=== PATIENT | female | born 1945 | race Caucasian/White ===

== ENCOUNTER 2016-12-24 06:53 | Day surgery (SDC) | payer MEDICARE, OTHER ==
[2016-12-24] VITALS (14 sets, daily range): BP systolic 120–157; BP diastolic 57–91; PULSE 56–70; RESP 13–24; Ht 162.6 cm; Wt 84.0 kg
[~2016-12-24] VITALS: Ht 162.6 cm; Wt 84.0 kg
[2016-12-24] MEDS ORDERED: CLON-379 PO (07:28)
[2016-12-24] MEDS ORDERED: LEVO75TA65 PO (07:28)
[2016-12-24] MEDS ORDERED: CLOP75TA27 PO (07:29)
[2016-12-24] MEDS ORDERED: LORA-441 PO (07:29)
[2016-12-24] MEDS ORDERED: TRAM-40 PO (07:30)
[2016-12-24] MEDS ORDERED: ASPI-664 PO (07:31)
[2016-12-24] MEDS ORDERED: ALEN70TA30 PO (07:31)
[2016-12-24] MEDS ORDERED: CARV25TA79 PO (07:31)
[2016-12-24] MEDS ORDERED: ISOS5TAB2 PO (07:32)
[2016-12-24] MEDS ORDERED: BENA20TA48 PO (07:32)
[2016-12-24] MEDS ORDERED: HYD25 PO (07:34)
[2016-12-24] MEDS ORDERED: HYDR-3671 PO (07:34)
[2016-12-24] MEDS ORDERED: ESOM40CA PO (07:35)
[2016-12-24] MEDS ORDERED: EZET10TA3 PO (07:35)
[2016-12-24] MEDS ORDERED: CRES10 PO (07:36)
[2016-12-24] MEDS ORDERED: MEMA14CA PO (07:36)
[2016-12-24 08:04] LABS: ADD SCAN DIFF NO
[2016-12-24 08:12] LABS: BASOPHILS % 0.8 % (0.0-2.0); HEMATOCRIT 35.1 % (37.0-47.0); HEMOGLOBIN 11.9 g/dl (12.0-16.0); LYMPHOCYTES # 1.5 10^3/ul (0.8-2.9); LYMPHOCYTES % 29.8 % (15.0-51.0); MEAN CORPUSCULAR HEMOGLOBIN 29.7 pg (29.0-33.0); MEAN CORPUSCULAR HGB CONC 33.9 g/dl (32.0-37.0); MEAN CORPUSCULAR VOLUME 87.5 fl (82.0-101.0); MEAN PLATELET VOLUME 10.2 fl (7.4-10.4); MONOCYTE # 0.4 10^3/ul (0.3-0.9); MONOCYTES % 8.8 % (0.0-11.0); NEUTROPHIL # 2.9 10^3/ul (1.6-7.5); NEUTROPHILS % 60.6 % (39.0-77.0); PLATELET COUNT 244 10^3/UL (140-415); RED BLOOD COUNT 4.01 10^6/ul (4.20-5.40); RED CELL DISTRIBUTION WIDTH 13.5 % (11.5-14.5); WHITE BLOOD COUNT 4.9 10^3/ul (4.8-10.8)
[2016-12-24 08:36] LABS: INR 0.97; PROTIME 12.9 Sec (12.2-14.2)
[2016-12-24 08:37] LABS: PARTIAL THROMBOPLASTIN TIME 28.6 Sec (25.0-35.0)
[2016-12-24 08:40] LABS: CALCIUM 9.6 mg/dl (8.4-10.2); CREATININE 0.65 mg/dl (0.44-1.00)
[2016-12-24] MEDS ORDERED: LIDOCAINE 1% (MDV) 20 ML INJ ONE (10:19)
[2016-12-24] MEDS ORDERED: IODIXANOL LOCM 100 ML BTL ONE (10:19)
[2016-12-24] MEDS ORDERED: HEPARIN 1000 UNITS/ML 10 ML INJ ONE (10:19)
[2016-12-24] MEDS ORDERED: VERAPAMIL 5 MG INJ ONE (10:20)
[2016-12-24] MEDS ORDERED: MIDAZOLAM 1 MG/ML 2 ML INJ ONE (10:21)
[2016-12-24] MEDS ORDERED: NITROGLYCERIN (IC) 100 MCG/ML INJ ONE (10:21)
[2016-12-24] MEDS ORDERED: FENTAnyl 50 MCG/ML VIAL ONE (10:22)
[2016-12-24] MEDS ORDERED: hydrALAzine 20 MG INJ ONE (11:20)
--- NOTE | 2016-12-24 11:58 | OPR ---
Date/Time of Note Date/Time of Note DATE: 12/24/16 TIME: 11:50 Operative Report Free Text/Dictation Procedure Date:12/24/2016 Procedures Performed: 1)Left heart catheterization with selective left and right coronary angiography. 2)Ultrasound guided access of right radial artery Pre-operative Diagnosis:CAD, nondiagnostic stress test, coronary CT poor study with possible significant prox LAD disease. Post-operative Diagnosis: nonobstructive CAD Indications:71 yo F with a h/o CAD s/p previous PCI of RCA, bilateral carotid stenosis, PVD, HTN, who has been having exertional dyspnea and some atypical chest pain. She had a stress test which was nondiagnostic as she was unable to reach goal HR. This was followed by a coronary CT which unfortunately was a poor study but was read as possible significant prox LAD disease. Therefore for more definite coronary anatomy evaluation, the pt was agreeable for cardiac cath. Description of Procedure: After informed consent, the patient was brought to the cardiac catheterization lab. The procedure site was prepped and draped in usual manner. The patient was premedicated with versed 0.5 mg and fentanyl 25 mcg. 25mL lidocaine was injected into the right wrist. Next using ultrasound guidance and posterior wall technique, the 6/5 [place] sheath was inserted into the right radial artery. Next using the JL3.5 and JR4, selective angiography of the left and right coronary arteries were obtained. Hemodynamics were obtained using the JR catheter.Left ventricle angiography was not obtained. Next all equipment was removed and hemostasis was obtained by TR band. Findings: Anatomy/Hemodynamics: Left main:normal LAD:small artery with ostial 20% Diagonal:very small artery with ostial 30% Circumflex: normal Obtuse marginal:normal RCA:20% luminal plaquing, mid stent is patent PDA:normal PLV:normal LV angiography:not done LV-Ao:no gradient. SBP 180s during case LVEDP:15 mmHg Contrast used:45 mL Assessment: Nonobstructive CAD Patent RCA lesion PVD Carotid stenosis HTN Plan: -observe for 2 hours and d/c home -continue ASA/plavix -HTN meds (will titrate as outpt) ANDREW BAPTISTE Dec 24, 2016 11:58
[2016-12-24] MEDS ORDERED: hydrALAzine 20 MG INJ IV PRN (12:00)
[2016-12-24] MEDS ORDERED: morphine 2 MG INJ IV PRN (12:00)
[2016-12-24] MEDS ORDERED: ONDANSETRON 4 MG INJ IV PRN (12:00)
--- NOTE | 2016-12-28 10:08 | RADRPT ---
Vent Rate: 55 bpm RR Interval: 0 msec WA Interval: 228 msec QRS Duration: 98 msec QT Interval: 466 msec QTC Interval: 445 msec P-R-T [place]: 53 - -16 - 53 degrees Sinus bradycardia with 1st degree AV block Otherwise normal ECG Electronically Signed By: Jose Maria Deshpande [id number]
== END 2016-12-24 15:18 | disposition home or self-care (01) ==
LOC: SDS 06:53
PROVIDERS: ATTEND Internal Medicine Interventional Cardiology
DX: I25.10 Atherosclerotic heart disease of native coronary artery without angina pectoris (principal); I73.9 Peripheral vascular disease, unspecified; I10 Essential (primary) hypertension
CPT/HCPCS: 80048; 85025; 85610; 85730; 93005; J0360; J1644; J2250; J3010; Q9967; 93458; C1769; C1887